=== PATIENT | male | born 1945 | race Caucasian/White ===

== ENCOUNTER 2019-01-12 07:01 | Day surgery (SDC) | payer MEDICARE, OTHER ==
[~2019-01-12 07:01] MED LIST: CEFAZOLIN 2 GM/50 ML (PMX) 50 ML IVPB
[2019-01-12] MEDS ORDERED: LACTATED RINGER'S 1,000 ML IV (08:00)
[2019-01-12] MEDS: SOD CHLORIDE 0.9% 1,000 ML IV (08:23)
[2019-01-12] MEDS ORDERED: LIDOCAINE 100 MG SYRINGE (09:40)
[2019-01-12] MEDS ORDERED: CEFAZOLIN 1 GM INJ ×2 (09:40→11:12)
[2019-01-12] MEDS ORDERED: PHENYLephrine (100 MCG/ML) 5ML SYG (09:40)
[2019-01-12] MEDS ORDERED: PROPOFOL 20 ML (09:40)
[2019-01-12] MEDS ORDERED: MIDAZOLAM 1 MG/ML 2 ML INJ (09:41)
[2019-01-12] MEDS ORDERED: FENTAnyl 50 MCG/ML VIAL (09:41)
[2019-01-12] MEDS ORDERED: ROPIVACAINE 0.5 % 30 ML VIAL (09:41)
[2019-01-12] MEDS ORDERED: DEXAMETHASONE 4 MG/ML 5 ML INJ (09:42)
[2019-01-12] MEDS ORDERED: ONDANSETRON 4 MG INJ (09:42)
[2019-01-12] MEDS ORDERED: ROPIVACAINE 0.2% 20 ML VIAL (10:04)
[2019-01-12] MEDS: POLYMYXIN/BACITRACIN 1L IRRIG IRR (10:25)
[2019-01-12] MEDS ORDERED: EPHEDrine 25 MG/5 ML SYG (10:54)
[2019-01-12] MEDS ORDERED: KETOROLAC 30 MG INJ IV (11:00)
[2019-01-12] MEDS ORDERED: HYDROmorphONE 1 MG/5 ML IV SYRINGE IV ×2 (11:00)
[2019-01-12] MEDS ORDERED: ONDANSETRON 4 MG INJ IV (11:00)
[2019-01-12] MEDS ORDERED: hydrALAzine 20 MG INJ IV (11:00)
== END 2019-01-12 14:36 | disposition home or self-care (01) ==
LOC: SDS 07:01
DX: T84.84XD Pain due to internal orthopedic prosthetic devices, implants and grafts, subsequent encounter (principal); M79.671 Pain in right foot; Y79.3 Surgical instruments, materials and orthopedic devices (including sutures) associated with adverse incidents; Y83.8 Other surgical procedures as the cause of abnormal reaction of the patient, or of later complication, without mention of misadventure at the time of the procedure; E11.42 Type 2 diabetes mellitus with diabetic polyneuropathy; Z79.4 Long term (current) use of insulin; Z79.84 Long term (current) use of oral hypoglycemic drugs; I48.91 Unspecified atrial fibrillation; I12.9 Hypertensive chronic kidney disease with stage 1 through stage 4 chronic kidney disease, or unspecified chronic kidney disease; N18.9 Chronic kidney disease, unspecified
CPT/HCPCS: 28725; 73630; 82962; 88300